=== PATIENT | male | born 1975 | race African-American/Black ===

== ENCOUNTER → 2018-04-02 | Outpatient (CLI) | payer BC ==
[2018-04-02 10:28] LABS: EOSINOPHILS % 1.1 % (0.0-5.0); HEMATOCRIT. 38.2 % (42.0-52.0); HEMOGLOBIN. 12.9 g/dL (14.0-18.0); MEAN CORPUSCULAR HEMOGLOBIN 30.1 pg (28.0-32.0); MEAN CORPUSCULAR VOLUME 89.4 fL (80.0-94.0); MEAN PLATELET VOLUME 8.3 fl (7.4-10.4); MONOCYTES % 8.4 % (2.0-8.0); NEUTROPHILS % 50.5 % (40.0-76.0); PLATELET 177 x1000/uL (130-400); RED BLOOD CELL COUNT 4.27 mill/uL (4.7-6.1); RED CELL DISTRIBUTION WIDTH 13.7 % (11.6-14.6)
[2018-04-02 10:38] LABS: CHLORIDE 104 mEq/L (98-107)
[2018-04-02 10:46] LABS: LDL CHOLESTEROL 95 mg/dL (5-100)
[2018-04-02 10:47] LABS: HDL CHOLESTEROL 112 mg/dL (40-59)
[2018-04-02 11:29] LABS: PROSTRATE SPECIFIC AG TOTAL 0.55 ng/mL (0.0-4.0)
[2018-04-02 11:41] LABS: HEPATITIS B SURFACE ANTIGEN NEGATIVE
[2018-04-03 04:14] LABS: HIV SCREEN 4G Non Reactive (Non Reactive)
== END | disposition home or self-care (01) ==
LOC: LAB 10:01
PROVIDERS: ATTEND Internal Medicine
DX: N40.0 Benign prostatic hyperplasia without lower urinary tract symptoms (principal); D64.9 Anemia, unspecified; K62.5 Hemorrhage of anus and rectum
CPT/HCPCS: 36415; 80061; 83036; 84153; 86803; 87340; 87389; G0103